=== PATIENT | male | born 1935 | race Two or more races ===

== ENCOUNTER 2017-01-12 20:43 | Emergency (ER) | payer OTHER ==
[2017-01-12 20:55] VITALS: TEMP 97.6; BMI 27.2
--- NOTE | 2017-01-12 21:44 | PDOC ---
History of Present Illness - History of Present Illness Initial Comments: 01/12/17 22:04 The patient is a 81 year old male, with a significant past medical history of Diabetes Type II, BPH, hypertension, hypercholesterolemia, kidney stones, who presents to the emergency department with granddaughters s/p falling down 3 steps and hitting his head on a metal gated door while taking out the garbage at his home around 5:30PM today. The patient states he was alone when he fell, but he can remember falling, hitting his head, and walking back into his home where his applied pressure to his head wound until the bleeding subsided. He complains of anterior and posterior head pain. He also reports neck pain, bilateral upper back and shoulder pain. He presents with two lidocaine patches on his upper back which he states his placed on prior to coming to the ED. He denies loss of consciousness. He denies any lower extremity complaints. He denies abdominal pain. The patient is unsure when he received his last tetanus. He denies chest pain, shortness of breath, headache and dizziness. He denies fever, chills, nausea, vomit, diarrhea and constipation. He denies dysuria, frequency, urgency and hematuria. Allergies: NKDA Past surgical history: appendectomy Social history: denies toxic habits PCP - Dr. Mcdowell <Teetee Pearson - Last Filed: 01/12/17 22:11> <Erna Griffin - Last Filed: 01/13/17 05:48> - General Chief Complaint: Injury Stated Complaint: S/P FALL Time Seen by Provider: 01/12/17 20:44 Past History <Teetee Pearson - Last Filed: 01/12/17 22:11> - Past Medical History Diabetes: Yes (TYPE II) Disorders: Yes (BPH) HTN: Yes Hypercholesterolemia: Yes Kidney Stones: Yes (12/04/14) Suicide Attempt (Hx): No - Surgical History Appendectomy: Yes - Psycho/Social/Smoking Cessation Hx Anxiety: No Suicidal Ideation: No Smoking History: Unknown if ever smoked Have you smoked in the past 12 months: No Number of Cigarettes Smoked Daily: 0 Information on smoking cessation initiated: No Hx Alcohol Use: No Drug/Substance Use Hx: No Substance Use Type: None <Erna Griffin - Last Filed: 04/13/17 05:48> - Past Medical History Allergies/Adverse Reactions: Allergies Allergy/AdvReac Type Severity Reaction Status Date / Time No Known Allergies Allergy Verified 05/17/15 10:45 Home Medications: Ambulatory Orders Amlodipine Besylate [Norvasc -] 5 mg PO DAILY 12/29/14 Atenolol [Tenormin -] 50 mg PO DAILY 12/29/14 Dutasteride [Avodart] 0.5 mg PO DAILY 12/29/14 Fenofibrate [Fenofibrate -] 54 mg PO DAILY 12/29/14 Metformin HCl [Glucophage] 1,000 mg PO BID 12/29/14 Simvastatin [Zocor -] 40 mg PO HS 12/29/14 Tamsulosin HCl [Flomax -] 0.4 mg PO HS 12/29/14 Ibuprofen 400 mg PO Q6H PRN #60 tablet 05/17/15 Review of Systems - Review of Systems Able to Perform ROS?: Yes Comments:: 01/12/17 22:06 CONSTITUTIONAL: Absent: fever, chills, diaphoresis, generalized weakness, malaise, loss of appetite HEENT: (+) head pain. Absent: rhinorrhea, nasal congestion, throat pain, throat swelling, difficulty swallowing,mouth swelling, ear pain, eye pain, visual Changes CARDIOVASCULAR: Absent: chest pain, syncope, palpitations, irregular heart rate, lightheadedness , peripheral edema RESPIRATORY: Absent: cough, shortness of breath, dyspnea with exertion, orthopnea, wheezing, stridor, hemoptysis GASTROINTESTINAL: Absent: abdominal pain, abdominal distension, nausea, vomiting, diarrhea, constipation, melena, hematochezia GENITOURINARY: Absent: dysuria, frequency, urgency, hesitancy, hematuria, flank pain, genital pain MUSCULOSKELETAL: (+) neck, back, bilateral shoulder pain. left index finger numbness. Absent: joint swelling SKIN: (+) abrasions and laceration to scalp. Absent: rash, itching, pallor HEMATOLOGIC/IMMUNOLOGIC: Absent: easy bleeding, easy bruising, lymphadenopathy, frequent infections ENDOCRINE: Absent: unexplained weight gain, unexplained weight loss, heat intolerance, cold intolerance NEUROLOGIC: Absent: headache, focal weakness or paresthesias, dizziness, unsteady gait, seizure, mental status changes, bladder or bowel incontinence PSYCHIATRIC: Absent: anxiety, depression, suicidal or homicidal ideation, hallucinations. <Gerson Pearsonanda - Last Filed: 01/12/17 22:11> *Physical Exam - Vital Signs Last Vital Signs Temp Pulse Resp BP Pulse Ox 97.6 F 98 H 15 134/61 96 01/12/17 20:44 01/12/17 20:44 01/12/17 20:44 01/12/17 20:44 01/12/17 20:44 - Physical Exam Comments: 01/12/17 22:08 GENERAL: The patient is awake, alert, and fully oriented, in no acute distress. HEAD: (+) nonbleeding 3cm partial thickness laceration of the midline frontal scalp, 2x2cm nonbleeding, abrasion of occipital scalp. EYES: Pupils equal, round and reactive to light, extraocular movements intact, sclera anicteric, conjunctiva clear with no pallor. ENT: Ears normal, nares patent, oropharynx clear without exudates. Moist mucous membranes. NECK: (+)Mild midline tenderness C6&7 without step off or tenderness. Normal range of motion, supple without lymphadenopathy, JVD, or masses. LUNGS: Breath sounds equal, clear to auscultation bilaterally. No wheeze/ crackles. HEART: Regular rate and rhythm, normal S1 and S2 without murmur or rub. ABDOMEN: Soft/nontender/nondistended. BS wnl. No guarding or rebound. No palpable masses. No hepatosplenomegaly. EXTREMITIES: (+) mild edema and erythema or distal phalanx left index finger. Normal range of motion, no edema. No clubbing or cyanosis. No cords, erythema, or tenderness. MUSCULOSKELETAL: No chest wall tenderness NEUROLOGICAL: Cranial nerves II through XII grossly intact. Normal speech, normal gait. PSYCH: Normal mood, normal affect. <LesleytosinTeetee orosco - Last Filed: 01/12/17 22:11> - Vital Signs Last Vital Signs Temp Pulse Resp BP Pulse Ox 97.6 F 98 H 15 134/61 96 01/12/17 20:44 01/12/17 20:44 01/12/17 20:44 01/12/17 20:44 01/12/17 20:44 <Erna Griffin - Last Filed: 01/13/17 05:48> Progress Note - Progress Note Progress Note: Documentation has been prepared under my direction and personally reviewed by me in its entirety. I attest that this documented accurately reflects all work, treatment, procedures and medical decision making performed by me. <Erna Griffin - Last Filed: 01/13/17 05:48> Medical Decision Making - Medical Decision Making As noted above, this 81-year-old man presents after falling down several stairs and the exterior of his home. The patient does not recall why he fell but recalls details of the episode and does not recall loss of consciousness. He was able to walk after falling and return into his home. Patient sustained abrasions of the frontal and occipital area of the head and also is complaining of neck pain. Exam as noted Noncontrast head CT and CT of the cervical spine performed. There was no evidence is intracranial pathology. Cervical spine CT showed no fracture. 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 Patient also had left hand x-ray performed which showed no evidence of fracture or dislocation Scalp wounds cleansed with normal saline and bacitracin applied. Because of the small amount of oozing from the frontal abrasion Xeroform and gauze dressing was applied. Patient will be discharged with soft cervical collar to be used as needed. He should take Tylenol/Advil/Aleve as needed for pain. He should follow-up with Dr. Aguirre within the next several days. He should return to the emergency room if his symptoms worsen <Erna Griffin - Last Filed: 01/13/17 05:48> *DC/Admit/Observation/Transfer - Attestations Scribe Attestion: 01/12/17 22:10 Documentation prepared by Teetee Pearson, acting as medical transcription supervisor for Erna Griffin MD <Teetee Pearson - Last Filed: 01/12/17 22:11> <Erna Griffin - Last Filed: 01/13/17 05:48> Diagnosis at time of Disposition: Scalp abrasion Qualifiers: Encounter type: initial encounter Qualified Code(s): S00.01XA - Abrasion of scalp, initial encounter Closed head injury Qualifiers: Encounter type: initial encounter Qualified Code(s): S09.90XA - Unspecified injury of head, initial encounter Cervical sprain Qualifiers: Encounter type: initial encounter Qualified Code(s): S13.9XXA - Sprain of joints and ligaments of unspecified parts of neck, initial encounter - Discharge Dispostion Disposition: HOME Condition at time of disposition: Stable - Referrals Referrals: Neris Mcdowell MD [Primary Care Provider] - 1 week - Patient Instructions Printed Discharge Instructions: DI for Closed Head Injury, DI for Whiplash Additional Instructions: Tylenol/Advil/Aleve as needed for pain Soft cervical collar as needed Keep head elevated tonight Bacitracin ointment to scalp abrasions daily for the next 4 days Which strenuous activity for the next several days Return to ER if you have severe pain/nausea Follow-up with within 5 days
[2017-01-13 00:31] VITALS: BP 155/74; PULSE 89
[2017-01-13] MEDS ORDERED: DIPHTH,PERTUSS(ACELL),TET 0.5 ML DISP.SYRIN IM ONE (00:40)
== END 2017-01-13 00:46 | disposition home or self-care (01) ==
LOC: FER 20:43
PROC: 3E0234Z Introduction of Serum, Toxoid and Vaccine into Muscle, Percutaneous Approach (ICD-10-PCS; principal; 2017-01-12)
DX: S00.01XA Abrasion of scalp, initial encounter (principal); S09.90XA Unspecified injury of head, initial encounter; S13.9XXA Sprain of joints and ligaments of unspecified parts of neck, initial encounter; W10.9XXA Fall (on) (from) unspecified stairs and steps, initial encounter; Y93.89 Activity, other specified; Y92.9 Unspecified place or not applicable; E11.9 Type 2 diabetes mellitus without complications; N40.0 Benign prostatic hyperplasia without lower urinary tract symptoms; I10 Essential (primary) hypertension; E78.00 Pure hypercholesterolemia, unspecified; Z87.442 Personal history of urinary calculi
CPT/HCPCS: 70450-TC; 72125-TC; 73130-TC-LT; 90715; 99283-25

== ENCOUNTER 2017-01-14 13:12 | Emergency (ER) | payer OTHER ==
[2017-01-14 13:16] VITALS: TEMP 98.8; BMI 22.9
[2017-01-14 14:49] VITALS: BP 148/64; PULSE 90
--- NOTE | 2017-01-14 15:21 | PDOC ---
History of Present Illness - General History Source: Old Records Exam Limitations: No Limitations - History of Present Illness Initial Comments: 01/14/17 15:57 The patient is a 81 year old male, with a significant past medical history of Diabetes Type II, BPH, hypertension, hypercholesterolemia, kidney stones, who was sent to the ED by PCP for low BP. Pt was seen in the ED on 01/14 due to a fall while taking out the garbage at his home. Pt denies any fever, chills, nausea, vomiting, diarrhea, or abdominal pain. Pt denies any chest pain or loss of consciousness. <Kristine Hensley - Last Filed: 01/14/17 15:55> <Magaly Goel - Last Filed: 01/14/17 20:18> - General Chief Complaint: Blood Pressure Problem Stated Complaint: HIGH BP (PCP SENT) Time Seen by Provider: 01/14/17 13:53 Past History <Kristine Hensley - Last Filed: 01/14/17 15:55> - Past Medical History Diabetes: Yes (TYPE II) Disorders: Yes (BPH) HTN: Yes Hypercholesterolemia: Yes Kidney Stones: Yes (12/04/14) Suicide Attempt (Hx): No - Surgical History Appendectomy: Yes - Psycho/Social/Smoking Cessation Hx Anxiety: No Suicidal Ideation: No Smoking History: Never smoked Have you smoked in the past 12 months: No Number of Cigarettes Smoked Daily: 0 Information on smoking cessation initiated: No Hx Alcohol Use: No Drug/Substance Use Hx: No Substance Use Type: None <Magaly Goel - Last Filed: 01/14/17 20:18> - Past Medical History Allergies/Adverse Reactions: Allergies Allergy/AdvReac Type Severity Reaction Status Date / Time No Known Allergies Allergy Verified 01/14/17 13:13 Home Medications: Ambulatory Orders Atenolol [Tenormin -] 50 mg PO DAILY 12/29/14 Fenofibrate [Fenofibrate -] 54 mg PO DAILY 12/29/14 Metformin HCl [Glucophage] 1,000 mg PO BID 12/29/14 Simvastatin [Zocor -] 40 mg PO HS 12/29/14 Review of Systems - Review of Systems Able to Perform ROS?: Yes Comments:: 01/14/17 15:58 GENERAL/CONSTITUTIONAL: No fever or chills. No weakness. HEAD, EYES, EARS, NOSE AND THROAT: No change in vision. No ear pain or discharge. No sore throat. CARDIOVASCULAR: No chest pain or shortness of breath. RESPIRATORY: No cough, wheezing, or hemoptysis. GASTROINTESTINAL: No nausea, vomiting, diarrhea or constipation. GENITOURINARY: No dysuria, frequency, or change in urination. MUSCULOSKELETAL: No joint or muscle swelling or pain. No neck or back pain. SKIN: No rash NEUROLOGIC: No headache, vertigo, loss of consciousness, or change in strength/ sensation. ENDOCRINE: No increased thirst. No abnormal weight change. HEMATOLOGIC/LYMPHATIC: No anemia, easy bleeding, or history of blood clots. ALLERGIC/IMMUNOLOGIC: No hives or skin allergy. <Kristine Hensley - Last Filed: 01/14/17 15:55> *Physical Exam - Vital Signs Last Vital Signs Temp Pulse Resp BP Pulse Ox 98.8 F 90 16 148/64 98 01/14/17 13:13 01/14/17 14:48 01/14/17 14:48 01/14/17 14:48 01/14/17 14:47 <Kristine Hensley - Last Filed: 01/14/17 15:55> - Vital Signs Last Vital Signs Temp Pulse Resp BP Pulse Ox 98.8 F 90 16 148/64 98 01/14/17 13:13 01/14/17 14:48 01/14/17 14:48 01/14/17 14:48 01/14/17 14:47 - Physical Exam Comments: GENERAL: Awake, alert, and fully oriented, in no acute distress HEAD: Healing abrasion to the L forehead. EYES: PERRLA, EOMI, sclera anicteric, conjunctiva clear ENT: Auricles normal inspection, hearing grossly normal, nares patent, oropharynx clear without exudates. Moist mucosa NECK: Normal ROM, supple, no lymphadenopathy, JVD, or masses LUNGS: Breath sounds equal, clear to auscultation bilaterally. No wheezes, and no crackles HEART: Regular rate and rhythm, normal S1 and S2, no murmurs, rubs or gallops ABDOMEN: Soft, nontender, normoactive bowel sounds. No guarding, no rebound. No masses EXTREMITIES: Normal range of motion, no edema. No clubbing or cyanosis. No cords , erythema, or tenderness NEUROLOGICAL: Cranial nerves II through XII grossly intact. Normal speech, normal gait SKIN: Warm, Dry, normal turgor, no rashes or lesions noted. <Magaly Goel - Last Filed: 01/14/17 20:18> Medical Decision Making - Medical Decision Making 01/14/17 14:46 Dr. Pete was paged and notified via phone service. <Kristine Hensley - Last Filed: 01/14/17 15:55> - Medical Decision Making Pt sent by Dr. Mcdowell for low diastolic BP (20s-30s) as measured in his office today. Patient is asymptomatic, and BP in the ED has not reflected the same finudings. I have discussed with Dr. Pete, covering Dr. Mcdowell. No indication for further intervention or workup. Stable for DC home. <Magaly Goel - Last Filed: 01/14/17 20:18> *DC/Admit/Observation/Transfer - Attestations Scribe Attestion: 01/14/17 15:58 Documentation prepared by Kristine Hensley, acting as medical detailist for Magaly Goel MD. <Kristine Hensley - Last Filed: 01/14/17 15:55> - Discharge Dispostion Admit: No <Magaly Goel - Last Filed: 01/14/17 20:18> Diagnosis at time of Disposition: Hypotension, unspecified Qualifiers: Hypotension type: unspecified hypotension type Qualified Code(s): I95.9 - Hypotension, unspecified - Discharge Dispostion Disposition: HOME Condition at time of disposition: Stable - Referrals Referrals: Neris Mcdowell MD [Primary Care Provider] - - Patient Instructions Printed Discharge Instructions: How to Monitor Your Blood Pressure at Home
== END 2017-01-14 15:45 | disposition home or self-care (01) ==
LOC: JER 13:12
DX: I95.9 Hypotension, unspecified (principal); E11.9 Type 2 diabetes mellitus without complications; Z79.84 Long term (current) use of oral hypoglycemic drugs; I10 Essential (primary) hypertension; E78.00 Pure hypercholesterolemia, unspecified; N40.0 Benign prostatic hyperplasia without lower urinary tract symptoms; Z87.442 Personal history of urinary calculi
CPT/HCPCS: 99283-25

== ENCOUNTER 2024-06-28 12:16 | Inpatient (IN) | payer OTHER ==
[2024-06-28] MEDS: SODIUM CHLORIDE 0.9% 1000 ML INFUS.BAG IV ONE (14:12)
[2024-06-28 14:16] LABS: BASO % 0.3 % (0-2.0); HEMOGLOBIN 9.7 GM/dL (11.7-16.9); LYMPH % 11.5 % (8-40); MCH 28.3 pg (25.7-33.7); MCHC 32.3 g/dl (32.0-35.9); MEAN CELL VOLUME 87.7 fl (80-96); MEAN PLT VOLUME 6.8 fl (7.5-11.1); MONO % 10.8 % (3.8-10.2); NEUT % 75.4 % (42.8-82.8); PLATELET COUNT 334 10^3/uL (134-434); RBC 3.43 M/mm3 (4.00-5.60); RDW 15.7 % (11.9-15.9); WHITE BLOOD COUNT 6.8 K/mm3 (4.0-10.0)
[2024-06-28 14:33] LABS: POTASSIUM 5.2 mmol/L (3.5-5.1)
[2024-06-28 14:35] LABS: BLOOD UREA NITROGEN 90.5 mg/dL (7-18); CALCIUM 10.3 mg/dL (8.5-10.1); MAGNESIUM 2.7 mg/dL (1.8-2.4)
[2024-06-28 14:38] LABS: CREATININE 5.5 mg/dL (0.55-1.3)
[2024-06-28 14:40] LABS: BILIRUBIN,TOTAL 0.4 mg/dL (0.2-1); TOT PROT 6.9 g/dl (6.4-8.2)
[2024-06-28 15:29] LABS: HIV INTERPRETATION NEGATIVE (NEGATIVE)
[2024-06-28 16:56] LABS: EPI CELLS >36 /uL (0-25.1); HYALINE CASTS 7 /uL (0-3.1); PH,URINE 5.5 (5.0-8.0); URINE APPEARANCE TURBID; URINE BACTERIA 5532 /uL (0-1359); URINE BILIRUBIN NEGATIVE (NEGATIVE); URINE COLOR YELLOW; URINE GLUCOSE (UA) 1+ (NEGATIVE); URINE KETONE NEGATIVE (NEGATIVE); URINE LEUK ESTERASE 3+ (NEGATIVE); URINE NITRITE NEGATIVE (NEGATIVE); URINE PROTEIN 2+ (NEGATIVE); URINE UROBILINOGEN 0.2 mg/dL (0.2-1.0); URINE WBC 22187 /uL (0-25.8)
[2024-06-28] MEDS: SODIUM CHLORIDE 0.45% 1,000 ML IV SCH (16:56)
[2024-06-28 17:57] LABS: URINE RBC 437.9 /uL (0-23.9)
[2024-06-28 17:58] LABS: YEAST NONE SEEN (NEGATIVE)
[2024-06-28] MEDS: CEFTRIAXONE 1 GM in DEXTROSE 5%-WATER - 100 ML IVPB ONE (18:26)
[2024-06-28] MEDS ORDERED: CEFTRIAXONE 1 GM/50 ML BAG ONE (18:26)
[2024-06-28 21:36] VITALS: BMI 21.7
[2024-06-28] MEDS: INSULIN ASPART SLIDING SCALE (NOVOLOG) 1 VIAL SQ SCH (22:01)
[2024-06-28] MEDS: ATORVASTATIN CA 20 MG TABLET (FP) PO SCH (22:01)
[2024-06-28] MEDS: HEPARIN NA (PORCINE) 5,000 UNITS/ML 1ML VIAL SQ SCH (22:01)
[2024-06-28] MEDS: LORazepam 2 MG/ML SDV VIAL IVPUSH ONE (22:59)
[2024-06-29] MEDS: FENOFIBRIC ACID 45 MG CAP PO SCH (10:24)
[2024-06-29 11:26] LABS: BASO % 0.2 % (0-2.0); EOS % 1.8 % (0-4.5); HEMATOCRIT 28.4 % (35.4-49); LYMPH % 9.7 % (8-40); MCH 28.3 pg (25.7-33.7); MCHC 31.8 g/dl (32.0-35.9); MEAN CELL VOLUME 89.2 fl (80-96); MONO % 9.9 % (3.8-10.2); NEUT % 78.4 % (42.8-82.8); PLATELET COUNT 281 10^3/uL (134-434); RBC 3.19 M/mm3 (4.00-5.60); RDW 15.6 % (11.9-15.9); WHITE BLOOD COUNT 5.9 K/mm3 (4.0-10.0)
[2024-06-29 11:55] LABS: POTASSIUM 5.2 mmol/L (3.5-5.1)
[2024-06-29 11:57] LABS: CALCIUM 9.7 mg/dL (8.5-10.1)
[2024-06-29 11:58] LABS: BLOOD UREA NITROGEN 79.4 mg/dL (7-18); MAGNESIUM 2.3 mg/dL (1.8-2.4)
[2024-06-29 12:01] LABS: CREATININE 4.7 mg/dL (0.55-1.3); PHOSPHOROUS 3.4 mg/dL (2.5-4.9)
[2024-06-29 12:02] LABS: ALBUMIN 2.4 g/dl (3.4-5.0); BILIRUBIN,TOTAL 0.4 mg/dL (0.2-1); TOT PROT 5.9 g/dl (6.4-8.2)
[2024-06-29] MEDS ORDERED: INSULIN ASPART SLIDING SCALE (NOVOLOG) 1 VIAL SQ ONE (12:03)
[2024-06-29] MEDS ORDERED: FENTANYL CITRATE/PF 50 MCG/ML VIAL ONE (12:59)
[2024-06-29] MEDS ORDERED: MIDAZOLAM HCL 2 MG/2 ML SINGLE DOSE VIAL ONE (12:59)
[2024-06-29] MEDS: MIDAZOLAM HCL 2 MG/2 ML SINGLE DOSE VIAL IVPUSH ONE (18:59)
[2024-06-29] MEDS: FENTANYL CITRATE/PF 50 MCG/ML VIAL IVPUSH SCH (18:59)
[2024-06-29] MEDS: MIRTAZAPINE 15 MG TABLET (FP) PO SCH (22:13)
[2024-06-30 08:22] LABS: HEMOGLOBIN 9.6 GM/dL (11.7-16.9); MCH 28.7 pg (25.7-33.7); MCHC 32.1 g/dl (32.0-35.9); MEAN CELL VOLUME 89.4 fl (80-96); MEAN PLT VOLUME 7.3 fl (7.5-11.1); PLATELET COUNT 331 10^3/uL (134-434); RBC 3.36 M/mm3 (4.00-5.60); RDW 15.1 % (11.9-15.9); WHITE BLOOD COUNT 9.1 K/mm3 (4.0-10.0)
[2024-06-30 08:40] LABS: POTASSIUM 5.1 mmol/L (3.5-5.1)
[2024-06-30 08:51] LABS: CALCIUM 9.9 mg/dL (8.5-10.1)
[2024-06-30 08:52] LABS: ALBUMIN 2.4 g/dl (3.4-5.0); BLOOD UREA NITROGEN 77.5 mg/dL (7-18)
[2024-06-30 08:55] LABS: CREATININE 4.4 mg/dL (0.55-1.3)
[2024-06-30 08:56] LABS: BILIRUBIN,TOTAL 0.7 mg/dL (0.2-1); TOT PROT 5.9 g/dl (6.4-8.2)
[2024-06-30] MEDS: ATENOLOL 50 MG TABLET (FP) PO SCH (10:38)
[2024-06-30] MEDS: HALOPERIDOL LACTATE 5 MG/ML IM ONE (14:29)
[2024-06-30] MEDS: LORazepam 2 MG/ML SDV VIAL IVPUSH PRN (21:42)
[2024-07-01 09:36] LABS: POTASSIUM 5.1 mmol/L (3.5-5.1)
[2024-07-01 09:38] LABS: CALCIUM 9.8 mg/dL (8.5-10.1)
[2024-07-01 09:39] LABS: ALBUMIN 2.2 g/dl (3.4-5.0); BLOOD UREA NITROGEN 71.3 mg/dL (7-18)
[2024-07-01 09:42] LABS: CREATININE 4.4 mg/dL (0.55-1.3)
[2024-07-01 09:43] LABS: BILIRUBIN,TOTAL 0.4 mg/dL (0.2-1)
[2024-07-01 09:44] LABS: TOT PROT 5.7 g/dl (6.4-8.2)
[2024-07-01] MEDS: LORazepam 2 MG/ML SDV VIAL IVPUSH ONE (10:41)
[2024-07-01 14:25] VITALS: RESP 19
[2024-07-02 17:35] VITALS: BP 130/45; PULSE 93; TEMP 97.7
== END 2024-07-02 17:26 | disposition home or self-care (01) | DRG 687 ==
LOC: JER 12:16 → JERBED 15:35 → J8W 19:56 → JERBED 23:46 → J8W 23:47
PROVIDERS: ADMIT Family Medicine; ATTEND Family Medicine
PROC: 0T9030Z Drainage of Right Kidney with Drainage Device, Percutaneous Approach (ICD-10-PCS; principal; 2024-06-29)
DX: D49.4 Neoplasm of unspecified behavior of bladder (principal); N13.30 Unspecified hydronephrosis; N17.9 Acute kidney failure, unspecified; F03.90 Unspecified dementia, unspecified severity, without behavioral disturbance, psychotic disturbance, mood disturbance, and anxiety; I10 Essential (primary) hypertension; E11.9 Type 2 diabetes mellitus without complications; E78.5 Hyperlipidemia, unspecified; N40.0 Benign prostatic hyperplasia without lower urinary tract symptoms; N13.9 Obstructive and reflux uropathy, unspecified; N20.0 Calculus of kidney; E87.5 Hyperkalemia; D64.9 Anemia, unspecified
CPT/HCPCS: 36415; 50432; 76775-TC; 76856-TC; 80053; 80061; 81003; 82728; 82962; 83540; 83550; 83735; 84100; 84443; 84466; 85025; 85027; 86803; 87070; 87075; 87086; 87102; 87116; 87186; 87205; 87206; 87210; 87389; 97116-GP; 97162-GP; 99285-25; J1644

== ENCOUNTER 2024-07-03 09:51 | Inpatient (IN) | payer OTHER ==
[2024-07-03 10:06] VITALS: BMI 21.7
[2024-07-03] MEDS ORDERED: ACETAMINOPHEN 1000 MG/100 ML BAG IVPB PRN (11:23)
[2024-07-03] MEDS: LACTATED RINGERS SOLUTION 1000 ML INFUS.BAG IV ONE (13:19)
[2024-07-03] MEDS: LORazepam 2 MG/ML SDV VIAL IVPUSH PRN (15:07)
[2024-07-03] MEDS ORDERED: MORPHINE SULFATE/0.9% NACL/PF 100 MG/100 ML BAG IVPB SCH (19:15)
[2024-07-03] MEDS: MORPHINE 100 MG/100 ML MG IVPB SCH (19:47)
[2024-07-04] MEDS: SCOPOLAMINE HYDROBROMIDE 1 PATCH PATCH.TD72 TD SCH (14:40)
[2024-07-05 02:21] VITALS: BP 116/45; PULSE 100; TEMP 98.2
[2024-07-05 23:35] VITALS: RESP 6
== END 2024-07-06 13:44 | disposition expired | DRG 683 ==
LOC: JER 09:51 → INTOOBSV 10:27 → UNDOADMOB 10:27 → JERBED 10:27 → J7W 11:19 → JERBED 11:19 → J7W 11:39 → J8W 14:16 → OBSVTOIN 07-05 10:29
PROVIDERS: ADMIT Family Medicine; ATTEND Family Medicine
DX: N17.9 Acute kidney failure, unspecified (principal); C78.00 Secondary malignant neoplasm of unspecified lung; G93.40 Encephalopathy, unspecified; F03.90 Unspecified dementia, unspecified severity, without behavioral disturbance, psychotic disturbance, mood disturbance, and anxiety; I10 Essential (primary) hypertension; E78.5 Hyperlipidemia, unspecified; C67.9 Malignant neoplasm of bladder, unspecified; D64.9 Anemia, unspecified; Z51.5 Encounter for palliative care
CPT/HCPCS: 82962; 99285-25; G0378